=== PATIENT | female | born 1980 | race Two or more races ===

== ENCOUNTER 2016-08-23 05:35 | Emergency (ER) | payer BC ==
[~2016-08-23] VITALS: Ht 165.1 cm; Wt 70.3 kg
[2016-08-23 06:02] VITALS: BP 123/68
--- NOTE | 2016-08-23 06:02 | NUR ---
PT AMBUALTORY TO ER BED 8 PT C/O MID BACK PAIN S/P VOMTING 3 DAYS AGO, PT ALSO STATES SHE HAS BEEN CIRPRO FOR A UTI AND BEEN FEELING ANXIOUS AFTER TAKING IT. PT AOX4 RR EVEN AND UNLABORED. NO SOB NOTED. NAD NOTED. NO NVD AT THIS TIME. PT NOT DIAPHORETIC. PT WAITING FOR MD VAZQUEZ.
--- NOTE | 2016-08-23 06:19 | NUR ---
DR. RODAS AT BEDSIDE FOR EVAL.
--- NOTE | 2016-08-23 06:20 | NUR ---
URINE PICKED UP PER LAB
[2016-08-23] MEDS ORDERED: IBUPROFEN 600 MG TABLET PO ONE (06:25)
[2016-08-23] MEDS ORDERED: LORAZEPAM 1 MG TABLET ONE (06:25)
[2016-08-23] MEDS: LORAZEPAM 1 MG TABLET PO ONE (06:30)
[2016-08-23] MEDS: IBUPROFEN 600 MG TABLET PO ONE (06:30)
[2016-08-23 06:32] LABS: APPEARANCE,URINE CLEAR (CLEAR); BILIRUBIN,URINE NEGATIVE (NEGATIVE); BLOOD, URINE NEGATIVE Ery/uL (NEGATIVE); COLOR,URINE YELLOW (YELLOW); KETONES,URINE NEGATIVE (NEGATIVE); LEUKOCYTE ESTERASE ,URINE NEGATIVE (NEGATIVE); NITRITE, URINE NEGATIVE (NEGATIVE); PROTEIN,URINE NEGATIVE (NEGATIVE); UGLUCOSE NEGATIVE (NEGATIVE); UROBILINOGEN,URINE 0.2 EU/dL (0.2)
--- NOTE | 2016-08-23 07:16 | NUR ---
DR. MENDEZ AT BEDSIDE SPEAKING TO PT REGARDING RESULTS .
== END 2016-08-23 07:32 | disposition home or self-care (01) ==
LOC: ER 05:42
DX: F41.9 Anxiety disorder, unspecified (principal); M54.5 Low back pain; R00.2 Palpitations
CPT/HCPCS: 81000-TC; 84703-TC; 87086-TC; A4606; Z7610